=== PATIENT | male | born 1940 | race Caucasian/White ===

== ENCOUNTER 2021-12-03 12:19 | Inpatient (IN) | payer OTHER, MEDICAID ==
[~2021-12-03] VITALS: Ht 175.3 cm; Wt 81.6 kg
[2021-12-03 12:31] VITALS: BP 181/101
--- NOTE | 2021-12-03 12:35 | NUR ---
AJAY VANG BED 3.
[2021-12-03] MEDS ORDERED: MORPHINE SULFATE 4 MG/ML SYR IVP ONE (13:35)
[2021-12-03 14:01] LABS: BASOPHILS % (AUTO) 0.3 % (0.0-2.0); EOSINOPHILS % (AUTO) 0.3 % (0.0-4.0); HEMATOCRIT 41.4 % (36-52); LYMPHOCYTES # (AUTO) 0.7 K/uL (2.0-11.5); LYMPHOCYTES % (AUTO) 11.9 % (20.5-51.1); MEAN CORPUSCULAR HEMOGLOBIN 30 pg (27-31); MEAN CORPUSCULAR HGB CONC 34 g/dL (33-37); MONOCYTES # (AUTO) 0.3 K/uL (0.8-1.0); MONOCYTES % (AUTO) 5.4 % (1.7-9.3); NEUTROPHILS # (AUTO) 4.6 K/uL (1.8-7.7); NEUTROPHILS % (AUTO) 82.1 % (42.2-75.2); PLATELET COUNT (AUTO) 162 K/uL (140-450); RED BLOOD CELL COUNT(AUTO) 4.76 MIL/uL (4.20-6.10); RED CELL DISTRIBUTION WIDTH 15.8 % (11.6-13.7); WHITE BLOOD COUNT (AUTO) 5.6 K/uL (4.8-10.8)
[2021-12-03 14:18] LABS: ALBUMIN 3.5 g/dL (3.4-5.0); ANION GAP 12.3 (8-16); ASPARTATE AMINOTRANSFERASE 17 U/L (15-37); CARBON DIOXIDE 23.6 mmol/L (21-32); CHLORIDE 106 mmol/L (98-107); CREATININE 0.8 mg/dL (0.6-1.3); LIPASE 38 U/L (73-393); POTASSIUM 3.9 mmol/L (3.5-5.1); SODIUM SERUM 138 mmol/L (136-145); TOTAL BILIRUBIN 0.9 mg/dL (0.0-1.0); UREA NITROGEN, BLOOD 10 mg/dL (7-18)
[2021-12-03 14:26] LABS: GLUCOSE 111 mg/dL (74-106)
[2021-12-03 15:50] LABS: BILIRUBIN,URINE 1+ (NEGATIVE); BLOOD, URINE 2+ (NEGATIVE); COLOR,URINE YELLOW (YELLOW); LEUKOCYTE ESTERASE ,URINE NEGATIVE (NEGATIVE); NITRITE, URINE NEGATIVE (NEGATIVE); UGLUCOSE NEGATIVE (NEGATIVE)
--- NOTE | 2021-12-03 15:52 | NUR ---
# 18 FR Garcia catheter with 10 ml utilizing sterile technique. Immediate return of 300 ml urine noted. Bedside drainage bag placed below level of bladder. Urine sample collected and sent to lab. Pt tolerated procedure well.
[2021-12-03 15:53] LABS: APPEARANCE,URINE HAZY (CLEAR)
--- NOTE | 2021-12-03 15:55 | NUR ---
81 Y/O MALE BIBA C/O INTERMITTENT ABDOMINAL PAIN RATED 10/10 X1WK. PT LBM TODAY. PT DENIES SOB, CHEST PAIN, N/V/D. PT DYSURIA/HEMATURIA. ABDOMEN IS TENDER TO PALPATION. PT IS ALERT AND ORIENTED X3. BED IN LOWEST POSITION. SIDE RAILS X1. PMH:DEMENTIA, HTN MEDS:DENIES NKA
[2021-12-03 16:03] LABS: RBC,URINE 0-5 /HPF (0-5); WBC,URINE 0-5 /HPF (0-5)
--- NOTE | 2021-12-03 16:03 | NUR ---
PT TO CT VIA [facility]
[2021-12-03] MEDS ORDERED: cefTRIAXone 1,000 MG VIAL ONE (17:03)
--- NOTE | 2021-12-03 17:47 | NUR ---
CORNELIA ALVARADO SWAB COLLECTED AND WALKED TO LAB
--- NOTE | 2021-12-03 17:50 | NUR ---
PT PROVIDED WITH NICOLE
--- NOTE | 2021-12-03 18:50 | NUR ---
PT RESTING IN NO DISTRESS, EVEN AND UNLABORED BREATHING, WILL CONTINUE TO MONITOR
--- NOTE | 2021-12-03 19:20 | NUR ---
Pt report given to TEDDY WILLIAM. Transfer of care at this time.
--- NOTE | 2021-12-03 20:10 | NUR ---
Patient will be admitted to care of DR. Hartley. Admited to Telemetry. Will go to room 108A. Belongings list completed. Report to given to YVONNE Gray.
--- NOTE | 2021-12-03 20:10 | NUR ---
Chart checked and completed.
--- NOTE | 2021-12-03 20:20 | NUR ---
PATIENT WAS BROUGHT TO [facility] FROM ER VIA [place] [id number]. DANISH SPEAKING, ON ROOM AIR. NO ACUTE DISTRESS. BREATHING EVEN UNLABORED. WALKED TO HIS BED FROM [facility] WITH ASSISTANCE. BOGGS CATHETER CONNECTED TO A SMALL BAG DRAINING CLEAR YELLOW URINE. NO COMPLAINTS OF PAIN AT THIS TIME. ALL SAFETY PRECAUTIONS ARE IN PLACE. ORIENTED TO ROOM, CALL LIGHT, STAFF. ATTENDED TO HIS NEEDS. SKIN INTACT NO WOUND. WILL CONTINUE TO MONITOR.
[2021-12-03] MEDS: METOPROLOL 25 MG TAB PO SCH (21:38)
[2021-12-03] MEDS: HYDROcodone/APAP 5/325 MG 1 TAB TAB PO PRN (21:39)
--- NOTE | 2021-12-03 21:39 | NUR ---
PATIENT COMPLAINED OF MODERATE ABDOMINAL PAIN. DR. MOLINA MADE AWARE WITH ORDERS, CARRIED OUT.
[2021-12-04] VITALS: BP 140/94
--- NOTE | 2021-12-04 00:30 | NUR ---
BOGGS CATHETER DRAINING BAG CHANGED TO A BIGGER BAG.
[2021-12-04 04:00] VITALS: BP 146/85
[2021-12-04] MEDS: HYDROcodone/APAP 5/325 MG 1 TAB TAB PO PRN (04:01)
--- NOTE | 2021-12-04 05:00 | NUR ---
PATIENT SLEEPING, NO SOB NOTED. CALL LIGHT WITHIN REACH.
[2021-12-04 06:37] LABS: CARBON DIOXIDE 25.1 mmol/L (21-32); CHLORIDE 107 mmol/L (98-107); CREATININE 0.9 mg/dL (0.6-1.3); GLUCOSE 120 mg/dL (74-106); POTASSIUM 4.1 mmol/L (3.5-5.1); SODIUM SERUM 137 mmol/L (136-145); UREA NITROGEN, BLOOD 9 mg/dL (7-18)
[2021-12-04 06:39] LABS: BASOPHILS % (AUTO) 0.3 % (0.0-2.0); EOSINOPHILS % (AUTO) 0.6 % (0.0-4.0); HEMATOCRIT 40.2 % (36-52); HEMOGLOBIN 13.7 g/dL (12.0-18.0); LYMPHOCYTES # (AUTO) 0.8 K/uL (2.0-11.5); LYMPHOCYTES % (AUTO) 10.3 % (20.5-51.1); MEAN CORPUSCULAR HEMOGLOBIN 29 pg (27-31); MEAN CORPUSCULAR HGB CONC 34 g/dL (33-37); MEAN CORPUSCULAR VOLUME 85.8 fL (80-94); MONOCYTES # (AUTO) 0.5 K/uL (0.8-1.0); MONOCYTES % (AUTO) 6.1 % (1.7-9.3); NEUTROPHILS # (AUTO) 6.1 K/uL (1.8-7.7); NEUTROPHILS % (AUTO) 82.7 % (42.2-75.2); PLATELET COUNT (AUTO) 155 K/uL (140-450); RED BLOOD CELL COUNT(AUTO) 4.69 MIL/uL (4.20-6.10); RED CELL DISTRIBUTION WIDTH 15.7 % (11.6-13.7); WHITE BLOOD COUNT (AUTO) 7.4 K/uL (4.8-10.8)
--- NOTE | 2021-12-04 07:25 | NUR ---
ENDORSED PATIENT TO AM NURSE FOR CONTINUITY OF CARE. PT IN STABLE CONDITION.
--- NOTE | 2021-12-04 07:26 | NUR ---
RECEIVED REPORT FROM TRAINING EXECUTIVE NURSE FOR CONTINUITY OF CARE. PT IN BED RESTING AT THIS TIME. RESPIRATIONS ARE EVEN AND UNLABORED ON ROOM AIR. NO SIGNS OF DISTRESS NOTED. PT IS ALERT AND ORIENTED X3. ABLE TO VERBALIZE IN CENTRAL AFRICAN. PT CARDIAC RHYTHM IS SINUS RHYTHM. PT IS ON REGULAR DIET, WITH BOWEL SOUNDS NOTED. PT LAST BOWEL MOVEMENT WAS 12/03/21. PT HAS BOGGS CATHETER IN PLACE, DRAINING YELLOW FLUID. PT HAS IV TO LAC 20G, AND TO L UPPER ARM 22G. SKIN IS WARM, DRY, AND INTACT. CALL LIGHT WITHIN REACH. ALL SAFETY MEASURES IN PLACE. WILL CONTINUE TO MONITOR.
[2021-12-04 08:00] VITALS: BP 140/82
[2021-12-04] MEDS: METOPROLOL 25 MG TAB PO SCH ×2 (08:24→21:33)
--- NOTE | 2021-12-04 08:39 | NUR ---
PATIENT HAS BEEN SCREENED AND CATEGORIZED LOW NUTRITION RISK. PATIENT WILL BE SEEN WITHIN 7 DAYS OF ADMISSION. 12/10/[address]
--- NOTE | 2021-12-04 08:49 | NUR ---
DR. NANCE HERE TO SEE PT. NEW ORDERS PLACED. WILL CONTINUE TO MONITOR.
[2021-12-04] MEDS: PANTOPRAZOLE 40 MG TABEC PO SCH (09:11)
[2021-12-04] MEDS ORDERED: MAG SULF 2000 MG/WATER PREMIX 50 ML IV PRN (09:25)
[2021-12-04] MEDS ORDERED: DOCUSATE SODIUM 100 MG GELCAP PO PRN (09:25)
[2021-12-04] MEDS ORDERED: HYDROcodone/APAP 5/325 MG 1 TAB TAB PO PRN (09:25)
[2021-12-04] MEDS ORDERED: ZOLPIDEM 5 MG TAB PO PRN (09:25)
[2021-12-04] MEDS ORDERED: MORPHINE SULFATE 2 MG/ML SYR IVP PRN ×2 (09:25→13:15)
[2021-12-04] MEDS ORDERED: POTASSIUM CHLORIDE 10 MEQ TABER PO PRN (09:25)
[2021-12-04] MEDS ORDERED: ACETAMINOPHEN 325 MG TAB PO PRN (09:25)
[2021-12-04] MEDS ORDERED: ONDANSETRON 4 MG/2 ML VIAL IM/IVP PRN (09:25)
[2021-12-04] MEDS: NACL 0.9% 1,000 ML IV SCH (09:35)
[2021-12-04 10:20] LABS: CHOL/HDL RATIO 3.1 (1-4.5); THYROID STIMULATING HORMONE 1.75 uIU/mL (0.34-3.74)
[2021-12-04 10:23] LABS: PROTHROMBIN TIME 10.9 secs (10.8-13.4)
--- NOTE | 2021-12-04 11:56 | NUR ---
DID ROUNDS ON PT. PT IN BED AT THIS TIME. NO SIGNS OF DISTRESS NOTED. PT STATES HE WANTS TO GO HOME AND WANTS HIS DAUGHTER TO PICK HIM UP. CALLED PT DAUGHTER, SHE STATES PT RESIDES AT [facility]. ALSO GAVE UPDATE ON PT. WILL CONTINUE TO MONITOR.
[2021-12-04 12:00] VITALS: BP 153/74
[2021-12-04] MEDS ORDERED: hydrALAZINE 20 MG/ML VIAL IVP PRN (13:15)
[2021-12-04 13:20] LABS: BARBITURATE, URINE NEGATIVE ng/ml (NEG <=200); BENZODIAZEPINE, URINE NEGATIVE ng/mL (NEG <=200); CANNABINOID, URINE NEGATIVE ng/mL (NEG <=50); COCAINE, URINE NEGATIVE ng/mL (NEG <=300); OPIATE, URINE NEGATIVE ng/mL (NEG <=2000); PHENCYCLIDINE SCREEN,URINE NEGATIVE ng/mL (NEG <=25)
--- NOTE | 2021-12-04 13:50 | NUR ---
DC PLANNING: THE PATIENT PRESENTED TO THE ED FROM [facility] WITH C/O WORSENING ABDOMINAL PAIN. CT ABDOMEN SHOWS MILD HYDRO AND URINE IN THE BLADDER. COUDE CATHETER PLACED WITH 300 CC URINE OUTPUT, UA+ FOR INFECTION, THE PATIENT WAS GIVEN IV ROCEPHIN AND ADMITTED FOR URINARY RETENTION AND UTI. UROLOGY CONSULT DONE, RECOMMENDS KEEPING THE FC AND FLUSH PRN. CM ATTEMPTED TO SPEAK WITH THE PATIENT AT BEDSIDE AND HE ASKED THAT CM CALL HIS DAUGHTER. THE PATIENT SPOKE WITH HIS DAUGHTER MAGGIE BY PHONE. THE PATIENT HAS BEEN AT [facility] IN [facility]ARE FOR 6 MONTHS. HE WALKS SHORT DISTANCES WITHOUT ANY ASSISTIVE DEVICES. 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 HE ALSO HAS A H/O GASTRIC ULCERS AND HIS BASELINE IS CONFUSION. CM DISCUSSED THE POSSIBILITY OF SNF PLACEMENT IF [facility] WILL NOT ACCEPT HIM WITH THE FC, SHE IS AGREEABLE TO AN INNOVAGE CONTRACTED SNF SUCH [facility]. CM SPOKE WITH [facility], IF THE PATIENT DC'S WITH A FC AND CAN'T MANAGE IT HIMSELF HE CANNOT RETURN THERE. CM WILL FOLLOW. Addendum: 12/04/21 at 1520 by Maria E Tarango CM Amended: Links added. Addendum: 12/05/21 at 1525 by Maria E Tarango CM DC PLANNING: ORDER RECEIVED TO DC PATIENT TO SNF. MIRTHA SPOKE WITH MIRTHA BENJAMIN AT [facility] AND FAXED THE DC ORDER FOR CONTINUED IV ABX AND BLADDER TRAINING PATIENT WILL DC WITH FC. REFERRAL SENT TO [facility] CM ALSO SPOKE WITH THE PATIENTS DAUGHTER MAGGIE TO ASK HER TO SPEAK WITH THE PATIENT REGARDING GOING TO SNF. MIRTHA THEN RECEIVED A CALL FROM THE PATIENTS SON PAUL WHO STATES THAT THE PATIENT NEEDS A LOCKED FACILITY HE WANDERS AND ALWAYS MANAGES TO REMOVE ANY TRACKING DEVICE THAT'S USED. MIRTHA THEN SPOKE WITH [facility] TO ENDORSE AND THEY AGREED THAT EVEN THOUGH THEY USE "WANDERGUARD" DEVICES THAT HE WOULD NOT BE APPROPRIATE FOR THEIR FACILITY. MIRTHA THEN SPOKE AGAIN WITH SOURAV AT [facility] WHO WILL SPEAK WITH HER MVA OPERATOR REGARDING CHOICES FOR A LOCKED SNF. MIRTHA WILL FOLLOW. Addendum: 12/06/21 at 0848 by Maria E Tarango CM DC PLANNING: MIRTHA FOLLOWED UP WITH MIRTHA BENJAMIN AT [facility] REGARDING REFERRING THE PATIENT TO A LOCKED SNF, LEFT ASKING FOR DIRECTION PATIENT HAS A DC ORDER. CM WILL FOLLOW. Addendum: 12/06/21 at 1355 by Maria E Tarango CM DC PLANNING: THE PATIENT IS ACCEPTED TO [facility], AD[address]ESS [address], [place] [address]. GOING TO ROOM 6A, DR CANTU TO FOLLOW. NUMBER TO CALL REPORT IS [phone]. [facility] IN PROCESS OF TRYING TO FIND SOMEONE TO TRANSPORT PATIENT ([phone], ASK FOR [employer] DISPATCH), WILL CALL WITH [facility]. CM ALSO CALLED [employer] CONTRACTED [facility]SPORTS [facility] [employer] [employer] [employer], NEITHER COULD TRANSPORT PATIENT TODAY. CM WILL FOLLOW UP WITH [facility]. Addendum: 12/06/21 at 1613 by Maria E Tarango CM DC PLANNING: [facility] TRAN[facility] UNABLE TO ACCOMMODATE PATIENT, [facility] ([phone]) IS ABLE TO PICK THE PATIENT UP BETWEEN 7-8 THIS PM. MIRTHA INFORMED WANG AT [facility] OF THE ETA, PATIENTS NURSE ALSO AWARE. CM WILL FOLLOW.
--- NOTE | 2021-12-04 15:31 | NUR ---
PT PULLED OUT IV AND PULLED OFF FINISHING LAB TECHNICIAN LEADS. WHEN ASKED PT WHY HE PULLED OUT IV AND MONITOR LEADS, PT STATED "BECAUSE I SAID SO". EDUCATED PT ON NEED FOR IV ACCESS AND MONITOR LEADS. PT JUST SHOOK HIS HEAD. WILL ATTEMPT IV ACCESS.
[2021-12-04 16:00] VITALS: BP 132/75
--- NOTE | 2021-12-04 16:23 | NUR ---
NEW IV PLACED, R WRIST 24G. WILL CONTINUE TO MONITOR.
--- NOTE | 2021-12-04 17:26 | NUR ---
PT ATTEMPT TO GET UP AND WALK AROUND. PT DRAGGING BOGGS CATHETER BEHIND HIM. REORIENTED PT BACK TO BED. WILL CONTINUE TO MONITOR.
--- NOTE | 2021-12-04 19:30 | NUR ---
ENDORSED PT TO COUNSELOR NURSES' [employer]OCIATION NURSE FOR CONTINUITY OF CARE. ALL NEEDS MET THROUGHOUT SHIFT. PT IS STABLE.
[2021-12-04 20:00] VITALS: BP 147/76
[2021-12-04] MEDS: LORazepam 2 MG/ML VIAL IM/IVP PRN (21:31)
--- NOTE | 2021-12-04 22:59 | NUR ---
PATIENT AWAKE ALERT X2 BELARUSIAN SPEAKING ON MONITOR SINUS TEMP 97.8 B/P 147/76 PATIENT RESTLESS PULLING AT F/C GIVEN ATIVAN 1MG IVP.2131 LUNGS CLEAR SAT 97%. NO DISTRESS NOTED.
[2021-12-05] VITALS: BP 151/82
[2021-12-05] MEDS: NACL 0.9% 1,000 ML IV SCH ×2 (02:05→18:45)
[2021-12-05 04:00] VITALS: BP 145/82
--- NOTE | 2021-12-05 07:12 | NUR ---
RECEIVED REPORT FROM BUSINESS ANALYTICS MANAGER NURSE FOR CONTINUITY OF CARE. PT IN BED RESTING AT THIS TIME. RESPIRATIONS ARE EVEN AND UNLABORED ON ROOM AIR. NO SIGNS OF DISTRESS NOTED.LUNG SOUNDS CLEAR ON AUSCULTATION. PT IS ALERT AND ORIENTED X2. ABLE TO VERBALIZE IN CHINESE. PT IS ON POLICY OFFICER, SINUS RHYTHM. PT IS ON REGULAR DIET, ABD IS NONTENDER, NONDISTENDED WITH BOWEL SOUNDS NOTED. PT LAST BOWEL MOVEMENT WAS 12/05/21. PT HAS BOGGS CATHETER IN PLACE, DRAINING YELLOW FLUID. PT HAS IV TO RIGHT WRIST, 24G. SKIN IS WARM, DRY, AND INTACT. CALL LIGHT WITHIN REACH. ALL SAFETY MEASURES IN PLACE. WILL CONTINUE TO MONITOR.
--- NOTE | 2021-12-05 07:35 | NUR ---
PATIENT TRYING TO TAKE OFF WRAP AT IV SITE REFUSE TO HAVE IV INFUSING. IV NOT RUNNING THROUGH THE NITE.
[2021-12-05 08:00] VITALS: BP 166/88
[2021-12-05] MEDS: LORazepam 2 MG/ML VIAL IM/IVP PRN (08:02)
[2021-12-05] MEDS: METOPROLOL 25 MG TAB PO SCH ×2 (08:56→21:11)
[2021-12-05] MEDS: MEMANTINE 10 MG TAB PO SCH (08:56)
[2021-12-05] MEDS: PANTOPRAZOLE 40 MG TABEC PO SCH (08:56)
[2021-12-05] MEDS: TAMSULOSIN 0.4 MG CAP PO SCH (08:56)
--- NOTE | 2021-12-05 09:00 | NUR ---
ADMINISTERED ALL SCHEDULED MEDICATIONS. EDUCATED PT ON MEDS ADMINISTERED. WILL CONTINUE TO MONITOR.
--- NOTE | 2021-12-05 09:27 | NUR ---
IV ANTIBIOTIC ADMINISTERED BY YVONNE VEGA. WILL CONTINUE TO MONITOR.
[2021-12-05] MEDS ORDERED: IV Rocephin IV (10:13)
[2021-12-05] MEDS ORDERED: TAMS0.4C96 PO (10:13)
[2021-12-05] MEDS ORDERED: LISI-486 PO (10:14)
[2021-12-05 12:00] VITALS: BP 136/67
--- NOTE | 2021-12-05 12:15 | NUR ---
PT ATTEMPTING TO GET OUT OF BED AND WALK AROUND. RE-ORIENTED PT. PT ALSO PULLED OUT IV. WILL ATTEMPT IV ACCESS.
--- NOTE | 2021-12-05 12:51 | NUR ---
BED ALARM GOING OFF. PT ATTEMPTING TO WALK AROUND ROOM, BOGGS CATHETER SEEN DRAGGING BEHIND HIM. RE-ORIENTED PT BACK TO BED. BOGGS CATHETER INTACT. PT REFUSING IV AT THIS TIME. WILL ATTEMPT AT A LATER TIME. WILL CONTINUE TO MONITOR.
--- NOTE | 2021-12-05 13:02 | NUR ---
NEW IV PLACED, R AC 22 G. WILL CONTINUE TO MONITOR.
--- NOTE | 2021-12-05 13:42 | NUR ---
PT PULLED OUT IV. WILL ATTEMPT NEW IV ACCESS.
--- NOTE | 2021-12-05 14:09 | NUR ---
PT PULLING IV LINES AND TAKING OFF BENCH ASSEMBLER BATTERY. RE-DIRECT PT. WILL CONTINUE TO MONITOR.
--- NOTE | 2021-12-05 15:47 | NUR ---
PT GETTING OUT OF BED, TAKING OFF FASHION MODEL, PULLING IV. RE-ORIENTED PT. WILL CONTINUE TO MONITOR.
[2021-12-05 16:00] VITALS: BP 133/77
--- NOTE | 2021-12-05 17:32 | NUR ---
PT DOWNGRADED TO MS. WILL CONTINUE TO MONITOR.
--- NOTE | 2021-12-05 19:20 | NUR ---
RECEIVED REPORT FROM TARIQ/RN, PT A&O X2, CONFUSED, LITHUANIAN SPEAKING, MONITOR FOR PULLING F/C & IV, NO IV LINE AT THIS TIME, F/C INTACT DRAINING WELL, TRIES TO GET OUT OF BED, VERY UNSTEADY, NO S/SX OF PAIN/DISCOMFORT, NO SOB/ DISTRESS ON ROOM AIR. WILL CONTINUE TO MONITOR. SKIN INTACT.
--- NOTE | 2021-12-05 19:25 | NUR ---
ENDORSED PT TO CHILDREN'S ATTENDANT NURSE FOR CONTINUITY OF CARE. PT IS STABLE.
[2021-12-05 20:00] VITALS: BP 102/61
[2021-12-06] VITALS: BP 112/70
[2021-12-06 04:00] VITALS: BP 143/75
[2021-12-06] MEDS: TAMSULOSIN 0.4 MG CAP PO SCH (08:30)
[2021-12-06] MEDS: PANTOPRAZOLE 40 MG TABEC PO SCH (09:00)
[2021-12-06] MEDS: MEMANTINE 10 MG TAB PO SCH (09:00)
[2021-12-06] MEDS: METOPROLOL 25 MG TAB PO SCH (09:00)
[2021-12-06] MEDS: NACL 0.9% 1,000 ML IV SCH (11:07)
[2021-12-06 15:08] VITALS: BP 146/76
[2021-12-06 16:40] VITALS: BP 146/68
--- NOTE | 2021-12-06 17:30 | NUR ---
[facility] ([phone]. GAVE REPORT TO MS. PETERSON RN. PT IS SET TO BE TRANSFERRED @1900 FROM [place]. DAUGHTER HAS BEEN NOTIFIED OF THE TRANSFER.
--- NOTE | 2021-12-06 19:45 | NUR ---
DISCHARGED. PT TRANSPORT ARRIVED WITH [facility]. PT SIGNED ALL DISCHARGE PAPERS. PT LEFT UNIT AT 1950 TRANSFERRED TO [facility] IN [place], [place]. NEXT TO [facility].
== END 2021-12-06 20:00 | DRG 690 ==
LOC: MED 12:19 → MTU 18:27
DX: N39.0 Urinary tract infection, site not specified (principal); K57.90 Diverticulosis of intestine, part unspecified, without perforation or abscess without bleeding; N40.0 Benign prostatic hyperplasia without lower urinary tract symptoms; I10 Essential (primary) hypertension; G30.9 Alzheimer's disease, unspecified; F02.80 Dementia in other diseases classified elsewhere, unspecified severity, without behavioral disturbance, psychotic disturbance, mood disturbance, and anxiety; E86.0 Dehydration; Z20.822 Contact with and (suspected) exposure to COVID-19
CPT/HCPCS: 36415; 71045; 80048; 80053; 80305; 81001; 82140; 82150; 83036; 83690; 83880; 84134; 84443; 85025; 85610; 85730; 87081; 87086; 93005; 96365; 97110; 97112; 97116; 97163-GP; 97530; 99285; C1758; J0696; J1644; J2060; J2270; J7060; Q0092; Q9967